=== PATIENT | female | born 1935 | race Caucasian/White ===

== ENCOUNTER 2019-05-04 17:14 | Inpatient (IN) | payer OTHER ==
[~2019-05-04] VITALS: Ht 152.4 cm; Wt 72.6 kg
[2019-05-04] MEDS ORDERED: [UNRECOGNIZED DRUG - OTHER] (17:31)
[2019-05-04] MEDS ORDERED: LIVALO (17:32)
[2019-05-04] MEDS ORDERED: ALENDRONATE (17:32)
[2019-05-04] MEDS ORDERED: ROPINIROLE (17:33)
[2019-05-07] MEDS ORDERED: LEVO-T75 MCG PO (07:50)
[2019-05-07] MEDS ORDERED: LUNESTA1 MG PO (07:50)
[2019-05-07] MEDS ORDERED: LOSARTAN POTAS100 MG PO (07:50)
[2019-05-07] MEDS ORDERED: QUETIAPINE FUM100 MG PO (07:51)
[2019-05-07] MEDS ORDERED: LAMICTAL150 MG PO (07:51)
[2019-05-07] MEDS ORDERED: GABAPENTIN300 M2 PO (07:52)
[2019-05-07] MEDS ORDERED: AMLODIPINE BESYL5 MG PO (07:52)
[2019-05-07] MEDS ORDERED: ROPINIROLE HC0.25 MG (07:54)
[2019-05-07] MEDS ORDERED: ALENDRONATE SOD70 MG (07:56)
[2019-05-07] MEDS ORDERED: LIVALO1 MG (07:58)
== END 2019-05-09 12:14 | disposition home or self-care (01) | DRG 378 ==
LOC: ER 17:14 → SEC-K 05-05 15:23 → MEDJ 05-05 15:23 → SEC-K 05-05 15:52 → MEDJ 05-05 15:53
PROVIDERS: ADMIT Internal Medicine
PROC: 4A12X4Z Monitoring of Cardiac Electrical Activity, External Approach (ICD-10-PCS; principal; 2019-05-05)
PROC: 30233N1 Transfusion of Nonautologous Red Blood Cells into Peripheral Vein, Percutaneous Approach (ICD-10-PCS; 2019-05-05)
PROC: 0T9B70Z Drainage of Bladder with Drainage Device, Via Natural or Artificial Opening (ICD-10-PCS; 2019-05-05)
DX: K57.31 Diverticulosis of large intestine without perforation or abscess with bleeding (principal); D62 Acute posthemorrhagic anemia; J90 Pleural effusion, not elsewhere classified; J98.11 Atelectasis; N17.8 Other acute kidney failure; E03.8 Other specified hypothyroidism; I70.0 Atherosclerosis of aorta; K42.9 Umbilical hernia without obstruction or gangrene; N39.8 Other specified disorders of urinary system; M62.59 Muscle wasting and atrophy, not elsewhere classified, multiple sites; I12.9 Hypertensive chronic kidney disease with stage 1 through stage 4 chronic kidney disease, or unspecified chronic kidney disease; N18.2 Chronic kidney disease, stage 2 (mild)